=== PATIENT | male | born 1975 | race Caucasian/White ===

== ENCOUNTER 2018-02-01 10:43 | Emergency (ER) | payer SELFPAY ==
[2018-02-01 11:32] VITALS: BP 131/87
--- NOTE | 2018-02-01 12:54 | Emergency Department Report ---
ED Medical Clearance HPI - General Chief complaint: Medical Clearance Stated complaint: CAST REMOVAL Time Seen by Provider: 02/01/18 12:45 Source: patient Mode of arrival: Ambulatory - History of Present Illness Initial comments: This is a 42-year-old male nontoxic, well nourished in appearance, no acute signs of distress presents to the ED for cast removal. Patient stated that he had a cast placed by orthopedic doctor. Patient stated he does did not follow- up with orthopedic doctor to get the cast removed. Patient denies any decreased sensation, decreased range of motion, fever, chills, nausea, vomiting chest pain, shortness of breath, headache or stiff neck. Patient denies any allergies or significant past medical history. Traumatic Symptoms: denies traumatic injury Associated Symptoms: denies other symptoms. denies: chest pain, shortness of breath, palpitations, diaphoresis, confusion, cough, fever/chills, headaches, anorexia, malaise, nausea/vomiting, rash, seizure, syncope, weakness Treatments Prior to Arrival: none Allergies/Adverse reactions: Allergies Allergy/AdvReac Type Severity Reaction Status Date / Time No Known Allergies Allergy Unverified 02/01/18 11:32 ED Review of Systems ROS: Stated complaint: CAST REMOVAL Other details as noted in HPI Constitutional: denies: chills, fever Eyes: denies: eye pain, eye discharge, vision change ENT: denies: ear pain, throat pain Respiratory: denies: cough, shortness of breath, wheezing Cardiovascular: denies: chest pain, palpitations Endocrine: no symptoms reported Gastrointestinal: denies: abdominal pain, nausea, diarrhea Genitourinary: denies: urgency, dysuria Musculoskeletal: denies: back pain, joint swelling, arthralgia Skin: denies: rash, lesions Neurological: denies: headache, weakness, paresthesias Psychiatric: denies: anxiety, depression Hematological/Lymphatic: denies: easy bleeding, easy bruising ED Past Medical Hx - Past Medical History Previous Medical History?: No - Surgical History Past Surgical History?: No - Social History Smoking Status: Never Smoker Substance Use Type: None ED Physical Exam - General Limitations: No Limitations General appearance: alert, in no apparent distress - Head Head exam: Present: atraumatic, normocephalic - Eye Eye exam: Present: normal appearance - ENT ENT exam: Present: mucous membranes moist - Neck Neck exam: Present: normal inspection - Respiratory Respiratory exam: Present: normal lung sounds bilaterally. Absent: respiratory distress - Cardiovascular Cardiovascular Exam: Present: regular rate, normal rhythm. Absent: systolic murmur, diastolic murmur, rubs, gallop - GI/Abdominal GI/Abdominal exam: Present: soft, normal bowel sounds - Rectal Rectal exam: Present: deferred - Extremities Exam Extremities exam: Present: normal inspection, full ROM, normal capillary refill , other (OCL sugar tongue splint present. Neurovasular intact; normal cap refill <2 second; normal sensation; denies decreaed sensation; normal ROM of digits.). Absent: tenderness, joint swelling - Back Exam Back exam: Present: normal inspection, full ROM - Neurological Exam Neurological exam: Present: alert, oriented X3, normal gait - Psychiatric Psychiatric exam: Present: normal affect, normal mood - Skin Skin exam: Present: warm, dry, intact, normal color. Absent: rash ED Course Vital Signs 02/01/18 11:21 Temperature 98.8 F Pulse Rate 86 Respiratory 18 Rate Blood Pressure 131/87 O2 Sat by Pulse 97 Oximetry - Reevaluation(s) Reevaluation #1: 02/01/18 12:58 Patient is speaking in full sentences with no signs of distress noted. ED Medical Decision Making - Medical Decision Making 42-year-old male that presents with cast removal. Patient stabilizes and by me. The cast has not been removed as I do not know for how long the cast has been placed for and the plan of the orthopedic. Patiet is neurovascularly intact. Patient was referred to Follow-up with a orthopedic doctor in 3-5 days or if symptoms worsen and continue return to emergency room as soon as possible. At time of discharge, the patient does not seem toxic or ill in appearance. No acute signs of distress noted. Patient agrees to discharge treatment plan of care. No further questions noted by the patient. ED Disposition Clinical Impression: Encounter for cast removal Disposition: DC-01 TO HOME OR SELFCARE Is pt being admited?: No Does the pt Need Aspirin: No Condition: Stable Additional Instructions: Follow-up with a orthopedic doctor in 3-5 days or if symptoms worsen and continue return to emergency room as soon as possible. Referrals: ANAID ADAMES MD [Primary Care Provider] - 3-5 Days MARY RAYMOND MD [Staff Physician] - 3-5 Days [facility] [Outside] - 3-5 Days
== END 2018-02-01 13:09 | disposition home or self-care (01) ==
LOC: ED 10:43
DX: Z48.01 Encounter for change or removal of surgical wound dressing (principal); T14.8XXD Other injury of unspecified body region, subsequent encounter
CPT/HCPCS: 99282